=== PATIENT | female | born 1950 | race Caucasian/White ===

== ENCOUNTER 2018-02-18 09:44 | Inpatient (IN) | payer OTHER, BC ==
[~2018-02-18] VITALS: Ht 162.6 cm; Wt 77.7 kg
[2018-02-18 13:55] VITALS: BP 135/82
[2018-02-18] MEDS ORDERED: ASPIRIN81 M2 PO (15:22)
[2018-02-18] MEDS ORDERED: LIPITOR80 MG PO (15:23)
[2018-02-18] MEDS ORDERED: UCERIS9 MG PO (15:24)
[2018-02-18] MEDS ORDERED: METOPROLOL TART50 MG PO (15:25)
[2018-02-18] MEDS ORDERED: LEXAPRO20 MG PO (15:26)
[2018-02-18] MEDS ORDERED: VITAMIN D31000 UNIT PO (15:26)
[2018-02-18] MEDS ORDERED: ONCE DAILY1 EACH PO (15:28)
[2018-02-18] MEDS ORDERED: ATIVAN0.5 MG PO (15:29)
[2018-02-18] MEDS ORDERED: TOTAL B WITH C1 EACH PO (15:30)
[2018-02-18] MEDS ORDERED: FAMOTIDINE20 MG PO (15:32)
[2018-02-18] MEDS ORDERED: PREDNISONE10 MG PO ×2 (15:40→15:41)
[2018-02-18] MEDS ORDERED: LOVENOX40 MG/0.4 SQ (15:43)
[2018-02-19 05:47] VITALS: BP 132/91
[2018-02-19 07:45] LABS: HEMOGLOBIN 13.6 G/DL (11.9-15.5); MCH 36.2 PG (29.0-34.0); MCHC 35.8 G/DL (30.0-36.0); MCV 101.1 FL (83-99); PLATELET COUNT 196 K/uL (156-360); RBC DIS.WIDTH-CV 13.1 % (11.8-14.6); RBC DIS.WIDTH-SD 48.4 % (39-53); RED BLOOD COUNT 3.76 M/uL (3.80-5.20); WHITE BLOOD COUNT 8.2 K/uL (4.1-10.2)
[2018-02-19 08:08] LABS: ALBUMIN 3.8 G/DL (3.2-4.8); ALKALINE PHOSPHATASE 63 IU/L (3-129); ALT (GPT) 35 IU/L (3-49); AST (GOT) 30 IU/L (2-34); CHLORIDE 100 MEQ/L (99-109); CREATININE 0.7 MG/DL (0.6-1.3); GFR ESTIMATE (CALCULATED) > 59 mL/min/; GLUCOSE 102 mg/dL (70-99); POTASSIUM 3.8 MEQ/L (3.7-5.4); SODIUM 133 MEQ/L (136-147); TOTAL BILIRUBIN 0.6 MG/DL (0.0-1.0); TOTAL PROTEIN 6.5 G/DL (6.4-8.3); UREA NITROGEN (BUN) 13 mg/dL (9-23)
[2018-02-19 15:29] VITALS: BP 137/78
[2018-02-19 21:25] VITALS: BP 162/84
[2018-02-20 05:42] VITALS: BP 140/97
[2018-02-20 16:05] VITALS: BP 146/77
[2018-02-21 06:58] VITALS: BP 169/81
[2018-02-22 05:13] VITALS: BP 121/78
[2018-02-22 11:45] VITALS: BP 127/71
[2018-02-22 12:29] LABS: CHLORIDE 100 MEQ/L (99-109); POTASSIUM 4.4 MEQ/L (3.7-5.4); SODIUM 133 MEQ/L (136-147); TOTAL BILIRUBIN 0.5 MG/DL (0.0-1.0)
[2018-02-22 12:30] LABS: HEMATOCRIT 37.8 % (36.0-46.0); HEMOGLOBIN 13.4 G/DL (11.9-15.5); MCH 36.1 PG (29.0-34.0); MCHC 35.4 G/DL (30.0-36.0); MCV 101.9 FL (83-99); PLATELET COUNT 230 K/uL (156-360); RBC DIS.WIDTH-CV 12.9 % (11.8-14.6); RBC DIS.WIDTH-SD 48.2 % (39-53); RED BLOOD COUNT 3.71 M/uL (3.80-5.20); WHITE BLOOD COUNT 10.6 K/uL (4.1-10.2)
[2018-02-22 12:39] LABS: TROP-I INTERPRETATION NEGATIVE; TROPONIN-I < 0.01 ng/mL (0.0-0.30)
[2018-02-22 12:42] LABS: ALKALINE PHOSPHATASE 62 IU/L (3-129); ALT (GPT) 35 IU/L (3-49); AST (GOT) 26 IU/L (2-34); CREATININE 0.8 MG/DL (0.6-1.3); GFR ESTIMATE (CALCULATED) > 59 mL/min/; GLUCOSE 104 mg/dL (70-99); TOTAL PROTEIN 6.5 G/DL (6.4-8.3); UREA NITROGEN (BUN) 16 mg/dL (9-23)
== END 2018-02-22 17:55 | DRG 56 ==
LOC: 3WEST 09:44
PROVIDERS: Hospitalist; Physical Medicine & Rehabilitation Pain Medicine
PROC: F07M0ZZ Range of Motion and Joint Mobility Treatment of Musculoskeletal System - Whole Body (ICD-10-PCS; principal; 2018-02-18)
DX: I69.359 Hemiplegia and hemiparesis following cerebral infarction affecting unspecified side (principal); I63.413 Cerebral infarction due to embolism of bilateral middle cerebral arteries; E87.1 Hypo-osmolality and hyponatremia; C78.7 Secondary malignant neoplasm of liver and intrahepatic bile duct; R29.6 Repeated falls; M19.90 Unspecified osteoarthritis, unspecified site; E78.00 Pure hypercholesterolemia, unspecified; K21.9 Gastro-esophageal reflux disease without esophagitis; I11.9 Hypertensive heart disease without heart failure; I73.9 Peripheral vascular disease, unspecified; M51.36 Other intervertebral disc degeneration, lumbar region; M53.3 Sacrococcygeal disorders, not elsewhere classified; Z92.3 Personal history of irradiation; Z85.118 Personal history of other malignant neoplasm of bronchus and lung; Z87.891 Personal history of nicotine dependence
CPT/HCPCS: 70551; 72170; 80053; 81003; 82948; 84484; 85027; 92523 GN; 92610 GN; 93005; 97530 GP; J1650; J7512

== ENCOUNTER 2018-02-22 15:22 | Inpatient (IN) | payer OTHER, BC ==
[~2018-02-22] VITALS: Ht 162.6 cm; Wt 78.0 kg
[~2018-02-22 15:22] MED LIST: ASPIRIN81 M2 PO; ATIVAN0.5 MG PO; FAMOTIDINE20 MG PO; LEXAPRO20 MG PO; LIPITOR80 MG PO; LOVENOX40 MG/0.4 SQ; METOPROLOL TART50 MG PO; ONCE DAILY1 EACH PO; PREDNISONE10 MG PO; TOTAL B WITH C1 EACH PO; UCERIS9 MG PO; VITAMIN D31000 UNIT PO
[2018-02-22 19:02] LABS: TROP-I INTERPRETATION NEGATIVE; TROPONIN-I < 0.01 ng/mL (0.0-0.30)
[2018-02-22 19:04] LABS: HDL CHOLESTEROL 54 MG/DL (Desirable>=50); LDL CHOLESTEROL 63 mg/dL (Desirable<100); NON-HDL CHOLESTEROL 92 mg/dL (Desirable<160); TOTAL CHOLESTEROL 146 mg/dL (Desirable<200); TRIGLYCERIDES 143 MG/DL (Normal: <150)
[2018-02-22 20:35] VITALS: BP 113/77
[2018-02-22 23:39] VITALS: BP 123/79
[2018-02-23 00:56] LABS: TROP-I INTERPRETATION NEGATIVE; TROPONIN-I < 0.01 ng/mL (0.0-0.30)
[2018-02-23 03:37] VITALS: BP 133/78
[2018-02-23 06:08] LABS: BASOPHIL (%) 0.9 % (0-1); BASOPHIL COUNT 0.1 K/uL (0-0.1); EOSINOPHIL (%) 0.2 % (0-5); HEMATOCRIT 36.6 % (36.0-46.0); HEMOGLOBIN 12.9 G/DL (11.9-15.5); IMMATURE GRANULOCYTE (%) 3.9 % (0.0-0.7); LYMPHOCYTE (%) 17.1 % (15-42); LYMPHOCYTE COUNT 1.5 K/uL (1.0-2.8); MCH 35.4 PG (29.0-34.0); MCHC 35.2 G/DL (30.0-36.0); MCV 100.5 FL (83-99); MONOCYTE (%) 10.9 % (3-12); NEUTROPHIL COUNT 6.1 K/uL (1.8-6.4); PLATELET COUNT 204 K/uL (156-360); RBC DIS.WIDTH-CV 12.7 % (11.8-14.6); RBC DIS.WIDTH-SD 47.3 % (39-53); RED BLOOD COUNT 3.64 M/uL (3.80-5.20)
[2018-02-23 06:26] LABS: TROP-I INTERPRETATION NEGATIVE; TROPONIN-I < 0.01 ng/mL (0.0-0.30)
[2018-02-23 06:38] LABS: CHLORIDE 101 MEQ/L (99-109); CREATININE 0.8 MG/DL (0.6-1.3); GFR ESTIMATE (CALCULATED) > 59 mL/min/; GLUCOSE 83 mg/dL (70-99); SODIUM 134 MEQ/L (136-147); UREA NITROGEN (BUN) 16 mg/dL (9-23)
[2018-02-23 06:39] LABS: POTASSIUM 3.5 MEQ/L (3.7-5.4)
[2018-02-23 07:36] VITALS: BP 136/85
[2018-02-23 09:45] LABS: FOLIC ACID (FOLATE) > 22.0 NG/ML (5.0-22.0)
[2018-02-23 11:24] LABS: HEMOGLOBIN A1c (GLYCOHEMOGLOB) 5.5 % (Below 5.7)
[2018-02-23 12:11] VITALS: BP 132/84
[2018-02-23 15:50] VITALS: BP 129/77
[2018-02-23 16:22] LABS: APPEARANCE CLEAR ((CLEAR)); BILIRUBIN NEGATIVE; BLOOD NEGATIVE; COLOR YELLOW ((YELLOW)); GLUCOSE (STRIP) NEGATIVE; KETONES NEGATIVE; LEUKOCYTES NEGATIVE; NITRITE NEGATIVE; PROTEIN (STRIP) NEGATIVE; SPECIFIC GRAVITY 1.013 (1.000-1.030); UCUL ADDED? NO; UROBILINOGEN 0.2 MG/DL (0.2-1.0)
[2018-02-23 18:55] VITALS: BP 129/72
[2018-02-23 23:52] VITALS: BP 138/79
[2018-02-24 03:34] VITALS: BP 133/71
[2018-02-24 07:01] VITALS: BP 145/77
[2018-02-24 07:03] LABS: HEMATOCRIT 39.3 % (36.0-46.0); MCH 35.9 PG (29.0-34.0); MCHC 35.6 G/DL (30.0-36.0); MCV 100.8 FL (83-99); PLATELET COUNT 223 K/uL (156-360); RBC DIS.WIDTH-CV 12.9 % (11.8-14.6); RBC DIS.WIDTH-SD 47.8 % (39-53); WHITE BLOOD COUNT 8.8 K/uL (4.1-10.2)
[2018-02-24 07:04] LABS: ALKALINE PHOSPHATASE 72 IU/L (3-129); ALT (GPT) 29 IU/L (3-49); AST (GOT) 16 IU/L (2-34); CHLORIDE 104 MEQ/L (99-109); CREATININE 0.7 MG/DL (0.6-1.3); GFR ESTIMATE (CALCULATED) > 59 mL/min/; GLUCOSE 80 mg/dL (70-99); POTASSIUM 3.8 MEQ/L (3.7-5.4); SODIUM 134 MEQ/L (136-147); TOTAL BILIRUBIN 0.5 MG/DL (0.0-1.0); TOTAL PROTEIN 6.1 G/DL (6.4-8.3); UREA NITROGEN (BUN) 14 mg/dL (9-23)
[2018-02-24 07:55] LABS: ABS NEUTROPHIL COUNT 6.7; ANISOCYTOSIS 1+; BAND NEUTROPHILS 1.8 % (0-8.0); BASOPHILS 0.9 %; EOSINOPHIL ABS CT 0.1; EOSINOPHILS 0.9 % (0-5.0); LYMPHOCYTES 12.9 % (15.0-45.0); MACROCYTES 1+; METAMYELOCYTES 0.9 %; MONOCYTES 7.4 % (0-9.0); MYELOCYTES 0.9 %; SEG.NEUTROPHILS 74.3 % (46.0-76.0)
[2018-02-24] MEDS ORDERED: XARELTO20 MG PO (08:07)
== END 2018-02-24 11:12 | DRG 65 ==
LOC: 5SOUTH 15:22 → ENRESERV 15:23 → 5SOUTH 15:30 → ENRESERV 16:14 → 5SOUTH 16:46
PROVIDERS: Hospitalist
DX: I63.40 Cerebral infarction due to embolism of unspecified cerebral artery (principal); R47.01 Aphasia; R41.3 Other amnesia; R29.6 Repeated falls; C78.7 Secondary malignant neoplasm of liver and intrahepatic bile duct; E87.1 Hypo-osmolality and hyponatremia; D72.829 Elevated white blood cell count, unspecified; I10 Essential (primary) hypertension; J44.9 Chronic obstructive pulmonary disease, unspecified; K21.9 Gastro-esophageal reflux disease without esophagitis; E78.5 Hyperlipidemia, unspecified; F32.9 Major depressive disorder, single episode, unspecified; M19.90 Unspecified osteoarthritis, unspecified site; Z85.118 Personal history of other malignant neoplasm of bronchus and lung; Z87.891 Personal history of nicotine dependence; Z92.3 Personal history of irradiation; M53.3 Sacrococcygeal disorders, not elsewhere classified
CPT/HCPCS: 80048; 80053; 80061; 81003; 82607; 82746; 83036; 84484; 85025; 92523 GN; 97530 GO; J1650; J7512

== ENCOUNTER 2018-02-23 14:23 | Inpatient (IN) | payer OTHER, BC ==
[~2018-02-23] VITALS: Ht 162.6 cm; Wt 77.5 kg
[2018-02-24] MEDS ORDERED: XARELTO20 MG PO (08:07)
[2018-02-24 11:15] VITALS: BP 143/78
[2018-02-24 15:45] VITALS: BP 125/82
[2018-02-25 00:05] VITALS: BP 130/78
[2018-02-25 05:50] VITALS: BP 136/79
[2018-02-25 08:45] LABS: HEMATOCRIT 42.2 % (36.0-46.0); HEMOGLOBIN 14.6 G/DL (11.9-15.5); MCH 35.2 PG (29.0-34.0); MCHC 34.6 G/DL (30.0-36.0); MCV 101.7 FL (83-99); PLATELET COUNT 244 K/uL (156-360); RBC DIS.WIDTH-SD 49.1 % (39-53); RED BLOOD COUNT 4.15 M/uL (3.80-5.20); WHITE BLOOD COUNT 11.2 K/uL (4.1-10.2)
[2018-02-25 09:16] LABS: ALKALINE PHOSPHATASE 82 IU/L (3-129); ALT (GPT) 34 IU/L (3-49); CHLORIDE 101 MEQ/L (99-109); CREATININE 0.8 MG/DL (0.6-1.3); GFR ESTIMATE (CALCULATED) > 59 mL/min/; POTASSIUM 4.5 MEQ/L (3.7-5.4); SODIUM 136 MEQ/L (136-147); TOTAL BILIRUBIN 0.6 MG/DL (0.0-1.0); TOTAL PROTEIN 6.6 G/DL (6.4-8.3); UREA NITROGEN (BUN) 12 mg/dL (9-23)
[2018-02-25 09:20] LABS: AST (GOT) 25 IU/L (2-34); GLUCOSE 126 mg/dL (70-99)
[2018-02-25 15:21] VITALS: BP 122/63
[2018-02-26 04:56] VITALS: BP 148/92
[2018-02-26 16:15] VITALS: BP 154/89
[2018-02-27 06:10] VITALS: BP 156/85
[2018-02-27 16:20] VITALS: BP 123/73
[2018-02-28 04:45] VITALS: BP 186/97
[2018-02-28 05:00] VITALS: BP 152/104
[2018-02-28 05:58] VITALS: BP 186/97
[2018-02-28 15:06] VITALS: BP 134/75
[2018-03-01 05:54] VITALS: BP 146/72
[2018-03-01 15:12] VITALS: BP 115/63
[2018-03-02 05:34] VITALS: BP 142/80
[2018-03-02 15:39] VITALS: BP 128/77
[2018-03-03 05:13] VITALS: BP 146/74
[2018-03-03 06:46] LABS: BASOPHIL COUNT 0.1 K/uL (0-0.1); EOSINOPHIL (%) 0.3 % (0-5); HEMATOCRIT 40.5 % (36.0-46.0); HEMOGLOBIN 14.1 G/DL (11.9-15.5); IMMATURE GRANULOCYTE (%) 3.9 % (0.0-0.7); LYMPHOCYTE (%) 15.6 % (15-42); LYMPHOCYTE COUNT 1.9 K/uL (1.0-2.8); MCH 35.3 PG (29.0-34.0); MCHC 34.8 G/DL (30.0-36.0); MCV 101.5 FL (83-99); MONOCYTE (%) 8.1 % (3-12); NEUTROPHIL (%) 71.1 % (45-76); NEUTROPHIL COUNT 8.4 K/uL (1.8-6.4); PLATELET COUNT 175 K/uL (156-360); RBC DIS.WIDTH-CV 12.9 % (11.8-14.6); RBC DIS.WIDTH-SD 48.3 % (39-53); RED BLOOD COUNT 3.99 M/uL (3.80-5.20); WHITE BLOOD COUNT 11.9 K/uL (4.1-10.2)
[2018-03-03 07:11] LABS: ALBUMIN 3.6 G/DL (3.2-4.8); ALKALINE PHOSPHATASE 96 IU/L (3-129); ALT (GPT) 40 IU/L (3-49); AST (GOT) 21 IU/L (2-34); CHLORIDE 103 MEQ/L (99-109); CREATININE 0.8 MG/DL (0.6-1.3); GFR ESTIMATE (CALCULATED) > 59 mL/min/; GLUCOSE 77 mg/dL (70-99); POTASSIUM 4.1 MEQ/L (3.7-5.4); SODIUM 138 MEQ/L (136-147); TOTAL BILIRUBIN 0.5 MG/DL (0.0-1.0); TOTAL PROTEIN 5.8 G/DL (6.4-8.3); UREA NITROGEN (BUN) 12 mg/dL (9-23)
[2018-03-03 15:18] VITALS: BP 130/67
[2018-03-04 04:52] VITALS: BP 146/76
[2018-03-04 15:09] VITALS: BP 125/66
[2018-03-05 04:46] VITALS: BP 147/86
[2018-03-05 15:27] VITALS: BP 130/78
[2018-03-06 05:36] VITALS: BP 149/82
[2018-03-06 15:51] VITALS: BP 115/59
[2018-03-07 05:52] VITALS: BP 138/71
[2018-03-07 11:17] VITALS: BP 118/68
[2018-03-07 16:10] VITALS: BP 121/71
[2018-03-07 19:07] LABS: HEMATOCRIT 39.1 % (36.0-46.0); HEMOGLOBIN 13.5 G/DL (11.9-15.5); MCH 34.8 PG (29.0-34.0); MCHC 34.5 G/DL (30.0-36.0); MCV 100.8 FL (83-99); PLATELET COUNT 157 K/uL (156-360); RBC DIS.WIDTH-SD 48.5 % (39-53); RED BLOOD COUNT 3.88 M/uL (3.80-5.20); WHITE BLOOD COUNT 10.7 K/uL (4.1-10.2)
[2018-03-07 19:31] LABS: CHLORIDE 102 MEQ/L (99-109); CREATININE 0.6 MG/DL (0.6-1.3); GFR ESTIMATE (CALCULATED) > 59 mL/min/; GLUCOSE 173 mg/dL (70-99); POTASSIUM 3.6 MEQ/L (3.7-5.4); SODIUM 134 MEQ/L (136-147); UREA NITROGEN (BUN) 12 mg/dL (9-23)
[2018-03-08 05:47] VITALS: BP 141/72
[2018-03-08] MEDS ORDERED: LIPITOR80 MG PO (14:00)
[2018-03-08] MEDS ORDERED: XARELTO20 MG PO (14:00)
[2018-03-08] MEDS ORDERED: PREDNISONE5 MG PO (14:00)
[2018-03-08] MEDS ORDERED: METOPROLOL TART50 MG PO (14:00)
[2018-03-08 15:15] VITALS: BP 119/56
== END 2018-03-08 17:55 | disposition home health service (06) | DRG 56 ==
LOC: 3WEST 14:23 → ENPENDDIS 03-08 → 3WEST 03-08 17:55
PROVIDERS: Physical Medicine & Rehabilitation Pain Medicine; Psychiatry & Neurology Neurology
PROC: F07M0ZZ Range of Motion and Joint Mobility Treatment of Musculoskeletal System - Whole Body (ICD-10-PCS; principal; 2018-02-24)
DX: I69.320 Aphasia following cerebral infarction (principal); I69.354 Hemiplegia and hemiparesis following cerebral infarction affecting left non-dominant side; I10 Essential (primary) hypertension; K21.9 Gastro-esophageal reflux disease without esophagitis; Z87.891 Personal history of nicotine dependence; E87.1 Hypo-osmolality and hyponatremia; F32.9 Major depressive disorder, single episode, unspecified; I73.9 Peripheral vascular disease, unspecified; E78.5 Hyperlipidemia, unspecified; E78.00 Pure hypercholesterolemia, unspecified; I11.9 Hypertensive heart disease without heart failure; C34.90 Malignant neoplasm of unspecified part of unspecified bronchus or lung; I63.9 Cerebral infarction, unspecified; J44.9 Chronic obstructive pulmonary disease, unspecified; R26.9 Unspecified abnormalities of gait and mobility; Z87.19 Personal history of other diseases of the digestive system; M19.90 Unspecified osteoarthritis, unspecified site; G45.8 Other transient cerebral ischemic attacks and related syndromes; I51.7 Cardiomegaly; Z86.73 Personal history of transient ischemic attack (TIA), and cerebral infarction without residual deficits; Z92.3 Personal history of irradiation; Z91.81 History of falling; M51.36 Other intervertebral disc degeneration, lumbar region; Z74.09 Other reduced mobility
CPT/HCPCS: 80048; 80053; 85025; 85027; 97110 GO; 97530 GP; J7512